=== PATIENT | female | born 2000 ===

== ENCOUNTER 2021-03-10 07:02 | Emergency (ER) | payer SELFPAY ==
[2021-03-10 07:07] VITALS: BP 153/100
== END 2021-03-10 11:47 ==
LOC: ED 07:02
DX: F31.9 Bipolar disorder, unspecified (principal); Z53.21 Procedure and treatment not carried out due to patient leaving prior to being seen by health care provider

== ENCOUNTER 2021-07-30 02:15 | Emergency (ER) | payer SELFPAY | END 2021-07-30 02:32 | disposition left against medical advice (07) | LOC: ED 02:15 | DX: R44.0 Auditory hallucinations (principal); Z53.21 Procedure and treatment not carried out due to patient leaving prior to being seen by health care provider ==